=== PATIENT | female | born 1935 | race Two or more races ===

== ENCOUNTER 2018-02-26 12:04 | Emergency (ER) | payer MEDICARE, MEDICAID ==
[~2018-02-26] VITALS: Ht 165.1 cm; Wt 66.2 kg
[~2018-02-26 12:04] MED LIST: BD LACTINEX1.4 MG PO; DEXILANT60 M1 PO; ELIQUIS2.5 MG; KEFLEX500 M1 PO; SIMVASTATIN10 M1
[2018-02-26 12:09] VITALS: BP 146/69; Ht 165.1 cm; Wt 66.2 kg
[2018-02-26] MEDS ORDERED: CHLORTHALIDONE25 MG PO (13:47)
[2018-02-26] MEDS ORDERED: CIPRO500 MG PO (13:48)
[2018-02-26] MEDS ORDERED: LOSARTAN POTASS50 M1 PO (13:48)
[2018-02-26] MEDS ORDERED: SIMVASTATIN40 M1 PO (13:48)
[2018-02-26] MEDS ORDERED: NEU300 PO (13:48)
[2018-02-26] MEDS ORDERED: APAP500 MG PO (13:48)
[2018-02-26] MEDS ORDERED: DILTIAZEM HYDR120 M2 PO (13:48)
[2018-02-26 14:43] LABS: microscopic required? YES; urine erythrocyte 3+ (NEGATIVE)
== END 2018-02-26 14:10 | disposition home or self-care (01) ==
LOC: ED 12:04
PROVIDERS: Emergency Medicine
DX: N39.0 Urinary tract infection, site not specified (principal); I48.91 Unspecified atrial fibrillation; I10 Essential (primary) hypertension; E78.00 Pure hypercholesterolemia, unspecified; Z88.2 Allergy status to sulfonamides
CPT/HCPCS: J0696